=== PATIENT | female | born 1980 | race Hispanic/Latino ===

== ENCOUNTER 2020-03-28 06:20 | Day surgery (SDC) | payer BC ==
[~2020-03-28] VITALS: Ht 172.7 cm; Wt 175.1 kg
[2020-03-28] VITALS (8 sets, daily range): BP systolic 110–130; BP diastolic 52–74
[2020-03-28] MEDS ORDERED: METF-446 PO (07:40)
[2020-03-28] MEDS ORDERED: LISI-613 PO (07:40)
[2020-03-28] MEDS ORDERED: CHLO25TA3 PO (07:40)
[2020-03-28] MEDS ORDERED: ATOR20TA65 PO (07:40)
[2020-03-28] MEDS ORDERED: PROPOFOL 10 MG/ML 20ML VIAL IV ONE ×2 (08:07→08:21)
[2020-03-28] MEDS ORDERED: LEVOFLOXACIN 500 MG/D5W 100 ML 100 ML ONE (08:48)
== END 2020-03-28 09:55 | disposition home or self-care (01) ==
LOC: DAH 06:20 → ENDO 06:20
PROVIDERS: ATTEND Internal Medicine Gastroenterology
DX: R93.3 Abnormal findings on diagnostic imaging of other parts of digestive tract (principal); K86.2 Cyst of pancreas; K31.89 Other diseases of stomach and duodenum; I10 Essential (primary) hypertension; I25.10 Atherosclerotic heart disease of native coronary artery without angina pectoris; K21.9 Gastro-esophageal reflux disease without esophagitis; E66.01 Morbid (severe) obesity due to excess calories; E11.9 Type 2 diabetes mellitus without complications; F41.9 Anxiety disorder, unspecified; E78.2 Mixed hyperlipidemia; Z90.49 Acquired absence of other specified parts of digestive tract
CPT/HCPCS: 36415; 43238; 82948 ×2; 84703; A4215 ×2; A4221; A4222; A4223; A4606; A4620; A4663; C9803; J1956; J2704 ×2; U0003